=== PATIENT | male | born 1945 | race Caucasian/White ===

== ENCOUNTER 2019-10-16 17:29 | Emergency (ER) | payer MEDICARE ==
[~2019-10-16] VITALS: Ht 177.8 cm; Wt 116.6 kg
--- NOTE | ~2019-10-16 | EKG ---
[place] [address] ELECTROCARDIOGRAM REPORT Name: BRITTNEY COMBS JR Room: [facility] ([place], [place])#: [id number] Admission: 10/16/19 Attend Phys: Discharge: 10/16/19 Date of : 41 Date of Service: 10/16/19 1823 Report #: [id number] THIS REPORT FOR: cc: Iglesia Webster MD, David L. 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 : 1945 Requested By: Soyfa Sutton Order Number: [id number] MD: Measurements Intervals [place] Rate: 60 P: 41 HI: 171 QRS: 9 QRSD: 120 T: -12 QT: 471 QTc: 471 Interpretive Statements Sinus rhythm Ventricular premature complex Nonspecific intraventricular conduction delay Inferior infarct, age indeterminate Compared to ECG 12/18/2017 19:49:35 Ventricular premature complex(es) now present Sinus bradycardia no longer present Myocardial infarct finding still present [email or web address] By: 22 22 Epiphany EpiphanyMD /CHRIS
[~2019-10-16 17:29] MED LIST: ALTACE10 MG PO; ASPIR 8181 MG PO; CHLORTHALIDONE25 MG PO; CIPRO500 MG PO; CRESTOR10 MG PO; CRESTOR40 MG PO; FISH OIL 1,001000 M2 PO; FLOMAX0.4 MG PO; LASIX 20 MG TAB20 MG; MULTIVITAMINS1 EAC7 PO; NORCO 7.5-3251 EACH PO; PROSCAR 5MG TABL5 MG PO; RAMIPRIL10 MG PO
[2019-10-16 18:09] LABS: URINE BILIRUBIN NEGATIVE (Negative); URINE BLOOD NEGATIVE (Negative); URINE CLARITY CLEAR; URINE COLOR YELLOW; URINE GLUCOSE-RANDOM NEGATIVE (Negative); URINE KETONES NEGATIVE (Negative); URINE LEUKOCYTES-REFLEX NEGATIVE (Negative); URINE NITRITE-REFLEX NEGATIVE (Negative); URINE PROTEIN NEGATIVE (Negative); URINE UROBILINOGEN 0.2 E.U./dl (0.2-1.0)
[2019-10-16 18:18] LABS: ABSOLUTE BASOPHILS 0.1 thou/uL (0.0-0.2); ABSOLUTE EOSINOPHILS 0.3 thou/uL (0.0-0.7); ABSOLUTE LYMPHOCYTES 1.7 thou/uL (0.8-5.3); ABSOLUTE MONOCYTES 0.4 thou/uL (0.0-1.2); ABSOLUTE NEUTROPHILS 4.4 thou/uL (1.6-8.1); BASOPHILS 0.8 %; EOSINOPHILS 3.9 %; HEMATOCRIT 41.1 % (42.0-52.0); HEMOGLOBIN 13.9 gm/dL (14.0-18.0); LYMPHOCYTES 24.2 %; MCH 30.1 pg (26.0-34.0); MCHC 33.8 g/dL (28.0-37.0); MCV 89.2 fL (80.0-100.0); MONOCYTES 6.5 %; MPV 8.5 fl. (7.2-11.1); NUCLEATED RBCS 0 /100WBC; PLATELET COUNT* 193 thou/uL (150-400); POLYS 64.6 %; WBC 6.8 thou/uL (4.0-11.0)
[2019-10-16 18:33] LABS: CALCIUM 8.5 mg/dL (8.5-10.1); CREATININE 1.1 mg/dL (0.6-1.3); POTASSIUM 3.9 mmol/L (3.5-5.1)
[2019-10-16 18:37] LABS: TOTAL BILIRUBIN 0.3 mg/dL (<0.1-1.0); TOTAL PROTEIN 7.3 g/dL (6.4-8.2)
[2019-10-16 19:19] VITALS: BP 163/76
[2019-10-16] MEDS ORDERED: BENTYL 20 MG TA20 M1 PO ×2 (20:14)
[2019-10-16] MEDS ORDERED: ONDANSETRON HCL4 M2 PO ×2 (20:14)
== END 2019-10-16 20:44 | disposition home or self-care (01) ==
LOC: M.ERS 17:29
PROVIDERS: Nurse Practitioner Family
DX: N28.1 Cyst of kidney, acquired (principal); R10.33 Periumbilical pain; R42 Dizziness and giddiness; I25.2 Old myocardial infarction; Z98.890 Other specified postprocedural states; Z88.8 Allergy status to other drugs, medicaments and biological substances

== ENCOUNTER 2020-02-25 23:32 | Inpatient (IN) | payer MEDICARE ==
[~2020-02-25] VITALS: Ht 177.8 cm; Wt 119.7 kg
[~2020-02-25 23:32] MED LIST changes: +BENTYL 20 MG TA20 M1 PO; +ONDANSETRON HCL4 M2 PO
[2020-02-25 23:42] VITALS: BP 130/96
[2020-02-26] VITALS (29 sets, daily range): BP systolic 82–142; BP diastolic 54–88
[2020-02-26 00:25] LABS: ABSOLUTE EOSINOPHILS 0.1 thou/uL (0.0-0.7); ABSOLUTE LYMPHOCYTES 2.6 thou/uL (0.8-5.3); ABSOLUTE MONOCYTES 0.8 thou/uL (0.0-1.2); ABSOLUTE NEUTROPHILS 5.9 thou/uL (1.6-8.1); BASOPHILS 0.5 %; EOSINOPHILS 0.8 %; HEMATOCRIT 40.1 % (42.0-52.0); HEMOGLOBIN 13.5 gm/dL (14.0-18.0); LYMPHOCYTES 27.5 %; MCH 30.6 pg (26.0-34.0); MCHC 33.5 g/dL (28.0-37.0); MCV 91.4 fL (80.0-100.0); MONOCYTES 8.8 %; MPV 8.7 fl. (7.2-11.1); NUCLEATED RBCS 0 /100WBC; PLATELET COUNT* 197 thou/uL (150-400); POLYS 62.4 %; RBC 4.39 mil/uL (4.50-6.00); RDW-CV 13.7 % (10.5-14.5); WBC 9.4 thou/uL (4.0-11.0)
[2020-02-26 00:28] LABS: CALCIUM 8.6 mg/dL (8.5-10.1); CREATININE 1.2 mg/dL (0.6-1.3); POTASSIUM 3.8 mmol/L (3.5-5.1)
[2020-02-26 00:32] LABS: PROTIME 10.5 Seconds (9.20-11.50)
[2020-02-26 00:39] LABS: ALBUMIN 3.8 g/dL (3.4-5.0); MAGNESIUM 1.9 mg/dL (1.8-2.4); TOTAL BILIRUBIN 0.3 mg/dL (<0.1-1.0); TOTAL PROTEIN 6.8 g/dL (6.4-8.2)
[2020-02-26] MEDS ORDERED: FISH OIL 1,001000 M3 PO (05:00)
--- NOTE | 2020-02-26 07:48 | NUR ---
PT ARRIVED TO BED 003 PER ED CART APPROX 0220. STOOD UP AND AMBULATEED A FEW STEPS TO BED WITH STEADY GAIT. DENIED ANY CP PAIN, SOA, OR DIZZINESS. PT WAS SB IN THE 40'S AND ASYMPTOMATIC. ER DR REPORTED SHE HAD SPOKE WITH DR LUCERO ABOUT HR AFTER MEDICATIIONS RECEIVED IN THE ED. PT REPORTRTED MILD ABD PAIN ON ARRIVAL TO ROOM WHICH QUICKLY RESOLVED. CALL LIGHT IN REACH.
[2020-02-26 08:07] LABS: ANION GAP 4 mmol/L (7-16); BUN 22 mg/dL (7-18); CALCIUM 8.2 mg/dL (8.5-10.1); CHLORIDE 107 mmol/L (98-107); CHOLESTEROL 121 mg/dL (<200); CO2 29 mmol/L (21-32); GLUCOSE 140 mg/dL (70-99); HDL CHOLESTEROL 54 mg/dL (>40); LDL CHOLESTEROL 49 mg/dL (<100); MAGNESIUM 2.5 mg/dL (1.8-2.4); POTASSIUM 4.3 mmol/L (3.5-5.1); SODIUM 140 mmol/L (136-145); TC:HDL 2.2 Ratio (Not establshd); TRIGLYCERIDE 92 mg/dL (<150); VLDL 18 mg/dL (<40)
[2020-02-26 08:08] LABS: SERUM ASSESSMENT Clear
--- NOTE | 2020-02-26 08:44 | NUR ---
PATIENT TO JACQUARD LOOM FIXER AT THIS TIME.
--- NOTE | 2020-02-26 10:31 | NUR ---
BACK FROM LOCKSTITCH BACK MAKER AT 1020
--- NOTE | 2020-02-26 11:15 | EKG ---
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[facility] : 1945 Requested By: Catrina Ramirez Order Number: [id number] MD: Iglesia Rahman Measurements Intervals [place] Rate: 180 P: 109 LA: 80 QRS: 262 QRSD: 178 T: 189 QT: 318 QTc: 551 Interpretive Statements Extreme tachycardia with wide complex, no further rhythm analysis attempted Compared to ECG 10/16/2019 18:23:08 wide complex tachycardia noted Electronically Signed On 02-26-2020 11:14:15 CDT by Iglesia Rahman [email or web address] <ELECTRONICALLY SIGNED> By: Iglesia Rahman MD, FAC 02/26/20 1114 2336 2336 Iglesia Rahman MD, [facility] /EPI
--- NOTE | 2020-02-26 11:17 | EKG ---
[place] [address] ELECTROCARDIOGRAM REPORT Name: BRITTNEY COMBS JR Room: [address] ADM IN M.R.#: [id number] Admission: 02/26/20 Attend Phys: Nick Lafleur Discharge: Date of : 41 Date of Service: 02/25/20 2346 Report #: [id number] THIS REPORT FOR: //name// 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: [facility] : 1945 Requested By: Catrina Ramirez Order Number: [id number] Ritchie MD: Iglesia Rahman Measurements Intervals [place] Rate: 86 P: [place]: QRS: -53 QRSD: 172 T: 118 QT: 436 QTc: 522 Interpretive Statements sinus rhythm Paired ventricular premature complexes Borderline prolonged QT interval Compared to ECG 10/16/2019 18:23:08 wide complex tachycardia no longer noted Electronically Signed On 02-26-2020 11:16:19 CDT by Iglesia Rahman [email or web address] <ELECTRONICALLY SIGNED> By: Iglesia Rahman MD, FAC 02/26/20 1116 2346 2346 Iglesia Rahman MD, [facility] /EPI
--- NOTE | 2020-02-26 11:18 | EKG ---
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: [facility] : 1945 Requested By: Catrina Ramirez Order Number: [id number] Reading MD: Iglesia Rahman Measurements Intervals [place] Rate: 71 P: 47 AR: 168 QRS: 7 QRSD: 109 T: 11 QT: 385 QTc: 419 Interpretive Statements Sinus rhythm Inferior infarct, old Abnormal lateral Q waves Compared to ECG 10/16/2019 18:23:08 Ventricular premature complex(es) no longer present Myocardial infarct finding still present Electronically Signed On 02-26-2020 11:17:09 CDT by Iglesia Rahman [email or web address] <ELECTRONICALLY SIGNED> By: Iglesia Rahman MD, [facility] 02/26/20 1117 2347 2347 Iglesia Rahman MD, [facility] /EPI
--- NOTE | 2020-02-26 13:41 | CARD ---
[address] [address] CARDIAC CATH REPORT Name: BRITTNEY COMBS JR Room: [facility]#: [id number] Admission: 02/26/20 Attend Phys: Kamran Johns Discharge: Date of : 41 Report #: [id number] THIS REPORT FOR: //name// cc: Iglesia Webster MD, David L. MD ~ APPROVED REPORT Study performed: 02/26/2020 08:20:46 Patient Details Patient Status: In-Patient Room #: The patient is a 74 year-old male Event Personnel Iglesia Rahman Bill Sorter, Georgia Wang RN RN, Allyssa Evans RN, Curry Alba PAPERHANGER AND PAINTER Monitor, Radha Shane RTR Scrub, Iglesia Rahman Sewer Maintenance Supervisor Procedures Performed cath pci Indication Arrhythmia, Dizziness and vertigo, Chest pain Risk Factors Hypercholesterolemia, Coronary Artery Disease Previous Procedures/Diagnoses Previous PCI Admission/Lab Medications/Medications given during procedure Glycoprotein IllbIlla Inhibitors, Heparin Unfract. Procedure Narrative The patient was brought urgently to the Cardiac Catheterization Laboratory and was prepped and draped in a sterile manner. The right wrist was infiltrated with 1% Lidocaine subcutaneous anesthesia. A Slender Glidesheath sheath was inserted into the right radial artery. Coronary angiography was performed using coronary diagnostic catheters. The right coronary system was accessed and visualized with a JR4 6fr catheter. The left coronary system was accessed and visualized with a JL4 6fr catheter. The left ventricle was accessed and visualized with a PC: Pig 6fr catheter. Left ventricular/Aortic Valve gradient assessed via catheter pullback[place] [address] CARDIAC CATH REPORT Name: BRITTNEY COMBS JR Room: [address] IN [facility]#: [id number] Admission: 02/26/20 Attend Phys: Kamran Johns Discharge: Date of : 41 Report #: [id number] was performed in CAMPBELL projection. Closure device was deployed with a 6 Fr Vasc-Band Lng 27cm. The patient tolerated the procedure well and there were no complications associated with the procedure. There was no hematoma. Intraoperative Conscious Sedation Sedation start time: 908 Case end Time: 1004 Versed 1 mg Fluoro Time: 8.7 minutes Dose: DAP [id number] cGycm2 2597 mGy Contrast Type and Amount: Omnipaque 270 ml Coronary Angiography The patient's coronary anatomy is right dominant. Diagnostic Cath Left Main 20% ostial stenosis LAD 30% proximal, and sequential 90% stenosis after a small second diagonal branch. 60% distal stenosis noted Diagonal 1 medium sized vessel with 70% mid stenosis Circumflex 0% stenosis OM2 40% proximal stenosis noted Right Coronary proximally chronically occluded with filling distally by bridging collaterals, as well as collaterals from the left coronary Left Ventriculography The left ventricular ejection fraction is estimated to be 30-35%. Left ventricular wall motion abnormalities are present. There is 1+ mitral insufficiency. akinesis noted of the base of the inferior wall, and mild hypokinesis noted of the mid and distal anterolateral wall Hemodynamics The aortic pressure is 85/49 mmHg with a mean of 65 mmHg. The left ventricular pressure is 102/10 mmHg with a mean of mmHg. The left ventricular end diastolic pressure is 22 mmHg. There was no gradient across the aortic valve upon pullback. Pullback from the left ventricle to the aorta revealed no gradient across the aortic valve. PCI Technique Lesion Anticoagulation was achieved with Heparin. bolus of iv aggrastat given Percutaneous coronary [place] [address] CARDIAC CATH REPORT Name: BRITTNEY COMBS JR Room: [address] IN [facility]#: [id number] Admission: 02/26/20 Attend Phys: Kamran Johns Discharge: Date of : 41 Report #: [id number] left anterior descending artery segment. The lesion stenosis prior to intervention was 90% with JOSLYN 3 flow. A 6F XB LAD 3.5 Guide Catheter was used to engage the lm ostium. A IG: BMW 190cm Interventional Guidewire was used to cross the lesion. BALLOON DILATION A Balloon catheter Trek RX 2.5 X 12 was inserted and inflated up to 18.00atm for 19seconds. Repeat angiography revealed the following post-dilatation results: 50% stenosis. Additional Inflation: 20.00atm for 11seconds. Additional Inflation: 20.00atm for 11seconds. STENT DEPLOYMENT A drug-eluting stent Jefferson RX Stent 3.0X22mm was inserted and inflated up to 12.00atm for 21seconds. Repeat angiography revealed the following post-stent deployment results: 30% stenosis. Additional Inflation: 14.00atm for 19seconds. Additional Inflation: 20.00atm for 17seconds. 22 netta for 12 sec POST STENT DEPLOYMENT BALLOON DILATION A Balloon catheter NC TREK RX 3.5X12 was inserted and inflated up to 20.00atm for 11seconds. Repeat angiography revealed the following post-dilatation results: 0% stenosis. Additional Inflation: 22.00atm for 16seconds. Additional Inflation: 22.00atm for 14seconds. 20 netta for 14 sec Final angiography reveals 0 % stenosis with JOSLYN 3 flow. Conclusion 1. 90% stenosis noted of the mid lad 2. chronic occlusion of the proximal rca that filled by collaterals 3. LVEF 30-35% 4. successful placement of a drug eluting stent in the mid lad Recommendations consider referal for ICD placement Medications Administered Prasugrel <ELECTRONICALLY SIGNED> By: Iglesia Rahman MD, [facility] 02/26/20 1339 1339 1339Daladi Rahman MD, FAC /INF
--- NOTE | 2020-02-26 14:02 | NUR ---
ICU rounds: Pt had a cath today, 1 stent placed. Pt to remain in the ICU. Pt is A&O. Resides at home with his . Active and independent. No DME. No hx of HH or SNF. Anticipate dc to home tomorrow, no needs anticipated.
--- NOTE | 2020-02-26 16:20 | CON ---
[address] [address] CONSULTATION Name: GARRETBRITTNEY VILLEGAS Room: [address] ADM IN M.R.#: [id number] Admission: 02/26/20 Attend Phys: Kamran Johns Discharge: Date of : 41 Report #: [id number] THIS REPORT FOR: //name// cc: Leann Webster MD, David L. MD ~ THIS REPORT FOR: //name// CC: LEANN Lafleur DATE OF SERVICE: 02/26/2020 CARDIOLOGY CONSULTATION HISTORY OF PRESENT ILLNESS: The patient is a 74-year-old white male who I was asked to see in the hospital today after he was noted to have a wide complex tachycardia. The patient has an extensive past medical history. Unfortunately, not a lot of his old records are available here at [facility]. He notes in 1982, he had balloon angioplasty of the coronary artery by Dr. Isaac Up at [facility] when he presented with chest pain. He had repeat heart catheterization in [place], [place] 1984 and apparently had another balloon angioplasty. He never required stents. He stays fairly active. Recently, he has been followed by Dr. Arevalo at [place]. He states he had a stress test about 2 years ago. He denies any recent chest pain, shortness of breath, fever, palpitations or syncope. Apparently at 09:30 last night, he was in bed when he felt diaphoretic, had an epigastric discomfort that went into his jaw. He denied his heart racing or lightheadedness. He has had no recent syncope. He think his blood pressure is elevated. His brought him to the Emergency Room last night. He was noted to be in a wide complex tachycardia. He apparently was cardioverted twice and placed on IV amiodarone. Cardiology consultation was requested. PAST MEDICAL HISTORY: Significant for cholecystectomy, shoulder surgery, hypertension. MEDICATIONS: Include Crestor, Altace, Lasix, prostate pill, aspirin. ALLERGIES: HE HAS AN ALLERGY TO LAMISIL. FAMILY HISTORY: His brother had bypass surgery. SOCIAL HISTORY: He is . His live here in [place]. 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 He stays active, working in the yard. He quit smoking in 1982[place] [address] CONSULTATION Name: BRITTNEY COMBS JR Room: [address]#: [id number] Admission: 02/26/20 Attend Phys: Kamran Johns Discharge: Date of : 41 Report #: [id number] REVIEW OF SYSTEMS: He has had eye exam in the past. He was told by his eye doctor he may have had a small stroke. He has sleep apnea, but cannot tolerate CPAP. There is no history of asthma, liver disease, kidney disease. He does have prostatism. No cancer. No psychiatric illness. No chronic skin condition. PHYSICAL EXAMINATION: GENERAL: Revealed an elderly male, appeared in no distress. VITAL SIGNS: He had a blood pressure of 100/60, pulse is currently 60 and regular. Respirations nonlabored. HEENT: He is anicteric. Conjunctivae are pink. Mucous membranes moist. NECK: Veins nondistended. No carotid bruits. CHEST: Clear to auscultation. CARDIOVASCULAR: Regular rate and rhythm. No significant murmurs. ABDOMEN: Soft. EXTREMITIES: Had no edema. Posterior tibial pulse 2+ bilaterally. SKIN: Cool and dry. NEUROLOGIC: Nonfocal. LYMPH: No adenopathy. MUSCULOSKELETAL: No joint effusion. DIAGNOSTIC DATA: His ECG on admission last night showed a sinus rhythm, evidence of previous inferior infarction. He did have a wide complex tachycardia at 180 beats per minute with a right bundle branch block pattern consistent with monomorphic ventricular tachycardia. His workup in the Emergency Room last night, he had a portable chest x-ray that showed some atelectasis, otherwise clear lung [place]. LABORATORY WORK: His lab work last night, sodium 140, BUN 22, creatinine 1.0. His troponins 0.06. His cholesterol 121, triglyceride 92, HDL of 54, LDL ____. White blood cell count 9.4 and hemoglobin 13.5. IMPRESSION AND RECOMMENDATIONS: 1. Wide complex tachycardia. Suspect ventricular tachycardia. Currently on amiodarone. Would assess left ventricular function. 2. Epigastric pain. Previous angioplasty. Recommend cardiac catheterization. 3. Hypertension. The patient is on an TOO inhibitor. 4. Hyperlipidemia. The patient is on a statin drug. 5. Previous eye exam suggesting a previous stroke. 6. Sleep apnea. Cannot tolerate CPAP. 7. Obesity. The patient is 5 feet 10 inches, 260 pounds. Recommend diet and exercise. <ELECTRONICALLY SIGNED> By: Leann Rahman MD, FACC 02/26/20 1620 0818 0848Daladi Rahman MD, FACC /nt
--- NOTE | 2020-02-26 18:28 | NUR ---
ASSESSMENT CHARTED. VSS. HR 45-60. CARDIAC CATH DONE THIS MORNING. 1X STENT TO LAD. RIGHT RADIAL CATH SITE C,D &I. TOLERATING ORAL INTAKE WITHOUT DIFFICULTY. NO COMPLAINTS OF PAIN. ACHS ACCUCHECKS PER CARDIOLOGY. NO OTHER COMPLAINTS.
[2020-02-27] VITALS (22 sets, daily range): BP systolic 115–173; BP diastolic 48–97
[2020-02-27 02:52] LABS: HEMATOCRIT 35.1 % (42.0-52.0); HEMOGLOBIN 12.1 gm/dL (14.0-18.0); MCHC 34.3 g/dL (28.0-37.0); MCV 90.4 fL (80.0-100.0); RBC 3.89 mil/uL (4.50-6.00); RDW-CV 14.2 % (10.5-14.5); WBC 8.2 thou/uL (4.0-11.0)
[2020-02-27 03:10] LABS: CALCIUM 8.2 mg/dL (8.5-10.1); POTASSIUM 4.2 mmol/L (3.5-5.1); TROPONIN-I LEVEL 0.13 ng/mL (<0.06)
--- NOTE | 2020-02-27 08:35 | NUR ---
PROGRESSING TOWARD GOALS. PT HAS DENIED CHEST PAIN, SOA, AND ANY OTHER DISCOMFORT THROUGHOUT THE NIGHT. PT DENIES QUESTIONS OR CONCERNS. TOLERATING PO INTAKE. CALL LIGHT WITHIN REACH.
--- NOTE | 2020-02-27 09:02 | EKG ---
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1945 Requested By: Iglesia Rahman Order Number: [id number] Ritchie MD: Iglesia Rahman Measurements Intervals [place] Rate: 50 P: 19 CO: 159 QRS: 8 QRSD: 122 T: -24 QT: 529 QTc: 483 Interpretive Statements Sinus bradycardia Ventricular premature complex Nonspecific intraventricular conduction delay Inferior infarct, old Compared to ECG 02/25/2020 23:47:46 Ventricular premature complex(es) now present Myocardial infarct finding still present Electronically Signed On 02-27-2020 9:01:27 CDT by Iglesia Rahman [email or web address] <ELECTRONICALLY SIGNED> By: Iglesia Rahman MD, [facility] 02/27/20 0901 1156 1156 Iglesia Rahman MD, [facility] /EPI
--- NOTE | 2020-02-27 09:15 | EKG ---
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
--- NOTE | 2020-02-27 11:57 | NUR ---
ICU rounds: Tele status. Plan dc to home tomorrow.
--- NOTE | 2020-02-27 14:39 | NUR ---
ASSUMED CARE OF PT AT THIS TIME. CONCUR WITH PREVIOUS RN'S ASSESSMENT.
--- NOTE | 2020-02-27 18:19 | NUR ---
PT PROGRESSING TOWARDS GOALS. TELE SB-SR. NO C/O PAIN. TOLERATING DIET. CLWR. WCTM.
[2020-02-28] VITALS: BP 138/90
[2020-02-28 02:07] LABS: GLYCOHEMOGLOBIN (HGB A1C) 6.7 % (4.8-5.6)
[2020-02-28 02:12] LABS: HEMATOCRIT 40.2 % (42.0-52.0); HEMOGLOBIN 13.5 gm/dL (14.0-18.0); MCH 30.7 pg (26.0-34.0); MCHC 33.6 g/dL (28.0-37.0); MCV 91.3 fL (80.0-100.0); MPV 8.6 fl. (7.2-11.1); RBC 4.4 mil/uL (4.50-6.00); RDW-CV 13.9 % (10.5-14.5); WBC 7.5 thou/uL (4.0-11.0)
[2020-02-28 02:30] LABS: ALBUMIN 3.3 g/dL (3.4-5.0); CALCIUM 8.4 mg/dL (8.5-10.1); MAGNESIUM 2.1 mg/dL (1.8-2.4); POTASSIUM 3.9 mmol/L (3.5-5.1); TOTAL BILIRUBIN 0.4 mg/dL (<0.1-1.0); TOTAL PROTEIN 6.3 g/dL (6.4-8.2)
[2020-02-28 08:00] VITALS: BP 129/72
[2020-02-28] MEDS ORDERED: METFORMIN HCL500 MG PO (09:57)
--- NOTE | 2020-02-28 10:27 | EKG ---
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1945 Requested By: Whitley Casillas Order Number: [id number] Reading MD: Iglesia Rahman Measurements Intervals [place] Rate: 56 P: 5 ME: 171 QRS: 21 QRSD: 123 T: -28 QT: 499 QTc: 482 Interpretive Statements Sinus bradycardia Nonspecific intraventricular conduction delay Inferior infarct, age indeterminate Compared to ECG 02/27/2020 08:18:12 Intraventricular conduction delay now present Myocardial infarct finding still present Electronically Signed On 02-28-2020 10:26:37 CDT by Iglesia Rahman [email or web address] <ELECTRONICALLY SIGNED> By: Iglesia Rahman MD, [facility] 02/28/20 1026 0906 Iglesia Rahman MD, [facility] /EPI
[2020-02-28] MEDS ORDERED: AMIODARONE HCL400 MG PO (10:42)
[2020-02-28] MEDS ORDERED: PRASUGREL HCL10 MG PO (10:47)
[2020-02-28] MEDS ORDERED: ACETAMINOPHEN325 MG PO (10:56)
[2020-02-28] MEDS ORDERED: NITROGLYCERIN0.4 MG SUBLING (11:30)
[2020-02-28] MEDS ORDERED: SPIRONOLACTONE25 M1 PO (11:31)
[2020-02-28 11:36] VITALS: BP 138/71
[2020-02-28 12:00] VITALS: BP 138/71
[2020-02-28 12:15] VITALS: BP 138/71
--- NOTE | 2020-02-28 16:34 | NUR ---
PT WORE A LIFE VEST ON, DISCHARGE EDUCATION GIVEN. IV LINES DC'd. WALKED OUT OF THE ICU AT 1340.
== END 2020-02-28 13:40 | disposition home or self-care (01) | DRG 246 ==
LOC: M.ERS 23:32 → M.ICU 02-26 01:13 → M.TBA-ER 02-26 01:13 → M.ICU 02-26 02:44
PROVIDERS: Emergency Medicine; Internal Medicine; Internal Medicine Cardiovascular Disease; ADMIT Internal Medicine; ATTEND Internal Medicine
PROC: B2111ZZ Fluoroscopy of Multiple Coronary Arteries using Low Osmolar Contrast (ICD-10-PCS; principal; 2020-02-26)
PROC: 027034Z Dilation of Coronary Artery, One Artery with Drug-eluting Intraluminal Device, Percutaneous Approach (ICD-10-PCS; principal; 2020-02-26)
PROC: B2151ZZ Fluoroscopy of Left Heart using Low Osmolar Contrast (ICD-10-PCS; principal; 2020-02-26)
PROC: 4A023N7 Measurement of Cardiac Sampling and Pressure, Left Heart, Percutaneous Approach (ICD-10-PCS; principal; 2020-02-26)
DX: I25.110 Atherosclerotic heart disease of native coronary artery with unstable angina pectoris (principal); I50.33 Acute on chronic diastolic (congestive) heart failure; I47.2 Ventricular tachycardia; E78.5 Hyperlipidemia, unspecified; G47.30 Sleep apnea, unspecified; M19.90 Unspecified osteoarthritis, unspecified site; I95.2 Hypotension due to drugs; N40.0 Benign prostatic hyperplasia without lower urinary tract symptoms; N18.2 Chronic kidney disease, stage 2 (mild); I42.9 Cardiomyopathy, unspecified; I12.9 Hypertensive chronic kidney disease with stage 1 through stage 4 chronic kidney disease, or unspecified chronic kidney disease; E66.9 Obesity, unspecified; Z90.49 Acquired absence of other specified parts of digestive tract; Z68.37 Body mass index [BMI] 37.0-37.9, adult; I25.2 Old myocardial infarction; Z95.5 Presence of coronary angioplasty implant and graft; Z79.899 Other long term (current) drug therapy; Z79.82 Long term (current) use of aspirin

== ENCOUNTER → 2020-08-19 | Outpatient (CLI) | payer MEDICARE ==
[~2020-08-19] MED LIST changes: +ACETAMINOPHEN325 MG PO; +AMIODARONE HCL400 MG PO; +FISH OIL 1,001000 M3 PO; +METFORMIN HCL500 MG PO; +NITROGLYCERIN0.4 MG SUBLING; +PRASUGREL HCL10 MG PO; +SPIRONOLACTONE25 M1 PO
== END ==
LOC: M.RAD 10:14
PROVIDERS: ATTEND Internal Medicine Cardiovascular Disease
DX: I47.2 Ventricular tachycardia (principal); Z79.899 Other long term (current) drug therapy